=== PATIENT | female | born 1970 | race Hispanic/Latino ===

== ENCOUNTER 2022-12-19 15:24 | Emergency (ER) | payer OTHER ==
[~2022-12-19] VITALS: Ht 149.9 cm; Wt 71.4 kg
[2022-12-19] MEDS ORDERED: PYRIDIUM200 MG PO (15:56)
[2022-12-19] MEDS ORDERED: CEFDINIR300 MG PO (15:56)
[2022-12-19 16:07] VITALS: BP 140/90
== END 2022-12-19 16:10 | disposition home or self-care (01) ==
LOC: FSED 15:29
DX: R30.0 Dysuria (principal); N30.01 Acute cystitis with hematuria; I10 Essential (primary) hypertension; E11.9 Type 2 diabetes mellitus without complications
CPT/HCPCS: 81003; 99283